=== PATIENT | male | born 2000 | race Caucasian/White ===

== ENCOUNTER 2019-10-13 10:22 | Outpatient (CLI) | payer MEDICAID ==
[2019-10-13 12:16] LABS: BASOPHILS # (AUTO) 0.1 10^3/uL (0.0-0.1); BASOPHILS % (AUTO) 0.9 %; EOSINOPHILS # (AUTO) 0.1 10^3/uL (0.0-0.7); EOSINOPHILS % (AUTO) 2.4 %; HGB - HEMOGLOBIN 15.7 g/dL (14.0-18.0); LYMPHOCYTES # (AUTO) 1.3 10^3/uL (1.5-3.5); LYMPHOCYTES % (AUTO) 21.8 %; MEAN CORPUSCULAR HEMOGLOBIN 30.9 pg (27.0-31.0); MEAN CORPUSCULAR HGB CONC 33.8 g/dL (32.0-36.0); MEAN CORPUSCULAR VOLUME 91.3 fL (80.0-94.0); MEAN PLATELET VOLUME 9.5 fL (7.4-11.4); MONOCYTES # (AUTO) 0.6 10^3/uL (0.0-1.0); MONOCYTES % (AUTO) 10.1 %; NEUTROPHILS # (AUTO) 3.8 10^3/uL (1.5-6.6); NEUTROPHILS % (AUTO) 64.5 %; PLT - PLATELET COUNT 272 10^3/uL (130-450); RED BLOOD COUNT 5.08 10^6/uL (4.70-6.10); RED CELL DISTRIBUTION WIDTH 12.6 % (12.0-15.0); WHITE BLOOD COUNT 5.9 x10^3/uL (4.8-10.8)
[2019-10-13 12:29] LABS: ALBUMIN 5.4 g/dL (3.2-5.5); ALBUMIN/GLOBULIN RATIO 2.1 (1.0-2.2); BILIRUBIN,TOTAL 0.9 mg/dL (0.2-1.0); CALCIUM 10.2 mg/dL (8.5-10.3); CREATININE 0.9 mg/dL (0.6-1.2)
[2019-10-13 12:52] LABS: FERRITIN 249.6 ng/mL (23.9-336.2)
== END 2019-10-13 23:59 | disposition home or self-care (01) ==
LOC: LAB.WCP 10:22
PROVIDERS: ATTEND Physician Assistant Medical
DX: F41.9 Anxiety disorder, unspecified (principal)
CPT/HCPCS: 36415; 80053; 82306; 82607; 82728; 84207; 84443; 85025

== ENCOUNTER 2019-11-14 14:29 | Outpatient (CLI) | payer MEDICAID ==
[2019-11-14 18:21] LABS: ALBUMIN 4.6 g/dL (3.2-5.5); BILIRUBIN,TOTAL 0.7 mg/dL (0.2-1.0); CALCIUM 9.6 mg/dL (8.5-10.3); CREATININE 0.8 mg/dL (0.6-1.2); TOTAL PROTEIN 6.9 g/dL (6.7-8.2)
== END 2019-11-14 23:59 | disposition home or self-care (01) ==
LOC: LAB.WCP 14:29
PROVIDERS: ATTEND Physician Assistant Medical
DX: R74.8 Abnormal levels of other serum enzymes (principal)
CPT/HCPCS: 36415; 80053

== ENCOUNTER 2022-04-26 08:00 | Outpatient (CLI) | payer MEDICAID | END 2022-04-26 23:59 | disposition home or self-care (01) | LOC: LAB.N 08:00 | PROVIDERS: ATTEND Family Medicine | DX: L05.91 Pilonidal cyst without abscess (principal) | CPT/HCPCS: 87070; 87205 ==

== ENCOUNTER 2022-08-12 15:13 | Outpatient (CLI) | payer MEDICAID ==
[2022-08-12] MEDS ORDERED: iohexoL-300 100 ML VIAL ONE (15:24)
[2022-08-12] MEDS ORDERED: iohexoL-300 100 ML VIAL IVP ONE (16:38)
--- NOTE | 2022-08-13 09:10 | CT Report ---
PROCEDURE: PELVIS W INDICATIONS: INFECTED SEBACEOUS CYST. Concern for abscess. CONTRAST: 100ml Omnipaque 300 TECHNIQUE: After the administration of intravenous contrast, 5 mm thick sections acquired from the iliac crests to inferior to the initial tuberosities. 5 mm thick coronal and sagittal reformats were acquired. F or radiation dose reduction, the following was used: automated exposure control, adjustment of mA an d/or kV according to patient size. COMPARISON: None FINDINGS: Peritoneum and bowel: Visualized large and small bowel is non-dilated. No free fluid or air. Genitourinary: Bladder wall thickness is normal. Nodes and vessels: No iliac, pelvic, or inguinal adenopathy. Iliac vessels demonstrate normal size and enhancement. Bones/body wall: No acute fracture visualized. Degenerative changes L5-S1. No soft tissue abscess vis ualized within the [id number]. IMPRESSION: No soft tissue abscess visualized within the [id number]. Reviewed by: Jacky Barrett MD on 08/13/2022 9:09 AM PST Approved by: Jacky Barrett MD on 08/13/2022 9:09 AM PST Station ID: [id number]
== END 2022-08-12 15:14 | disposition home or self-care (01) ==
LOC: DI 15:13
PROVIDERS: ATTEND Internal Medicine
DX: L72.3 Sebaceous cyst (principal)
CPT/HCPCS: 72193; Q9967

== ENCOUNTER 2022-11-19 06:37 | Outpatient (CLI) | payer MEDICAID ==
--- NOTE | 2022-11-19 10:49 | Ultrasound Report ---
PROCEDURE: Abdomen Complete INDICATIONS: ELEVATED TRANSAMINASES TECHNIQUE: Real-time scanning was performed of the abdominal and retroperitoneal organs, with image documentatio n. COMPARISON: None. FINDINGS: Liver: Hepatic steatosis, with sparing at the gallbladder fossa. Loss of portal wall echogenicity. Gallbladder: Unremarkable. Biliary ducts: Intrahepatic bile ducts are non-dilated. Extrahepatic bile duct caliber measures 3.1 mm. Normal is 6-7 mm or less in diameter, or 10 mm or less post-cholecystectomy. Pancreas: Visualized portions of the pancreas are sonographically normal. Spleen: Spleen is normal in size and homogeneous in echotexture. Kidneys: Kidneys are normal in size and echotexture. Right kidney measures 11.7 cm long; left kidne y measures 11.9 cm long. No hydronephrosis or nephrolithiasis. No solid masses. No complex renal cy stic lesions which require follow-up. Aorta: Visualized aorta is normal in caliber at less than 3 cm. Iliacs: Proximal common iliac arteries are normal in caliber at less than 2.5 cm. IVC: Intrahepatic inferior vena cava is patent. Miscellaneous: No free abdominal fluid. IMPRESSION: Moderate hepatic steatosis. In the absence of alcohol use or other confounding factors, elevated LFTs may indicate nonalcoholic steatohepatitis (METZGER). Reviewed by: Alexx Milner on 11/19/2022 10:47 AM PDT Approved by: Alexx Milner on 11/19/2022 10:47 AM PDT Station ID: [id number]
== END 2022-11-19 06:38 | disposition home or self-care (01) ==
LOC: DI 06:37
PROVIDERS: ATTEND Internal Medicine
DX: K76.0 Fatty (change of) liver, not elsewhere classified (principal)

== ENCOUNTER 2023-01-01 12:42 | Outpatient (CLI) | payer MEDICAID ==
[2023-01-01 18:26] LABS: ALBUMIN 4.5 g/dL (3.2-5.5); BILIRUBIN,DIRECT 0.1 mg/dL (0.1-0.5); BILIRUBIN,TOTAL 0.6 mg/dL (0.2-1.0); TOTAL PROTEIN 8.2 g/dL (6.7-8.2)
[2023-01-02 03:10] LABS: HCV AB Non Reactive (Non Reactive)
[2023-01-02 05:13] LABS: HBsAG SCREEN Negative (Negative)
== END 2023-01-01 12:43 | disposition home or self-care (01) ==
LOC: LAB.N 12:42
PROVIDERS: ATTEND Internal Medicine
DX: R74.01 Elevation of levels of liver transaminase levels (principal)
CPT/HCPCS: 36415; 80076; 82390; 82728; 83540; 84466; 86704; 86803; 87340